=== PATIENT | male | born 1995 | race Two or more races ===

== ENCOUNTER 2017-11-25 15:38 | Emergency (ER) | payer SELFPAY ==
[~2017-11-25] VITALS: Ht 177.8 cm; Wt 68.0 kg
[2017-11-25] MEDS ORDERED: IV NORMAL SALINE 1000ML BAG 1,000 ML IV ONE (16:00)
[2017-11-25] MEDS ORDERED: truvada (16:00)
--- NOTE | 2017-11-25 16:29 | PHYS DOC ---
Past Medical History Past Medical History: No Pertinent History Past Surgical History: Appendectomy, Other Additional Past Surgical Histo: rhinoplasty Alcohol Use: Occasionally Drug Use: None Adult General Chief Complaint Chief Complaint: ANXIETY/PANIC ATTACK HPI HPI 22-year-old male presents to ER via EMS with anxiety and hyperventilation. Patient is scheduled to be at 7 PM tonight and while in preparation for tonight's events had increased anxiety and began hyperventilating. Patient did take Valium 5 mg by mouth prior to EMS.. Review of Systems Review of Systems Constitutional: Denies fever or chills [] Eyes: Denies change in visual acuity, redness, or eye pain [] HENT: Denies nasal congestion or sore throat [] Respiratory: Denies cough or shortness of breath [] Cardiovascular: No additional information not addressed in HPI [] GI: Denies abdominal pain, nausea, vomiting, bloody stools or diarrhea [] : Denies dysuria or hematuria [] Musculoskeletal: Denies back pain or joint pain [] Integument: Denies rash or skin lesions [] Neurologic: Denies headache, focal weakness or sensory changes [] Endocrine: Denies polyuria or polydipsia [] All other systems were reviewed and found to be within normal limits, except as documented in this note. Current Medications Current Medications Current Medications Medications (Trade) Dose Ordered Sig/Андрей Start Time Stop Time Status Last Admin Dose Admin Lorazepam (Ativan) 1 mg 1X ONCE 11/25/17 17:15 11/25/17 17:16 DC Sodium Chloride 1,000 ml @ 1,000 mls/hr 1X ONCE 11/25/17 16:00 11/25/17 16:59 DC 11/25/17 16:07 1,000 MLS/HR Allergies Allergies Allergies Coded Allergies Type Severity Reaction Last Updated Verified Penicillins Allergy Unknown 11/25/17 Yes junie Allergy Unknown 11/25/17 Yes Physical Exam Physical Exam Constitutional: Well developed, well nourished, no acute distress, non-toxic appearance. [] HENT: Normocephalic, atraumatic, bilateral external ears normal, oropharynx moist, no oral exudates, nose normal. [] Eyes: PERRLA, EOMI, conjunctiva normal, no discharge. [] Neck: Normal range of motion, no tenderness, supple, no stridor. [] Cardiovascular:Heart rate regular rhythm, no murmur [] Lungs & Thorax: Bilateral breath sounds clear to auscultation [] Abdomen: Bowel sounds normal, soft, no tenderness, no masses, no pulsatile masses. [] Skin: Warm, dry, no erythema, no rash. [] Back: No tenderness, no CVA tenderness. [] Extremities: No tenderness, no cyanosis, no clubbing, ROM intact, no edema. [] Neurologic: Alert and oriented X 3, normal motor function, normal sensory function, no focal deficits noted. [] Psychologic: Affect normal, judgement normal, mood normal. [] Current Patient Data Vital Signs Vital Signs Date Time Temp Pulse Resp B/P (MAP) Pulse Ox O2 Delivery O2 Flow Rate FiO2 11/25/17 15:53 97.8 124 36 132/87 (102) 100 97.8 EKG EKG [] Radiology/Procedures Radiology/Procedures [] Course & Med Decision Making Course & Med Decision Making 1626: Reevaluation patient had slightly improved symptoms following 0.5 IV Ativan. Patient remains on nonrebreather mask at 6 L low-flow. While reevaluating patient did have increased anxiety so additional 1 mg IV Ativan was administered. Following redirection of breathing technique. He was able to slow his respirations and had improved symptoms. 172: Pt has had much improved sxs since arriving following flds/IV ativan. He reports he is feeling much better and feels comfortable with home discharge. Patient's fiance is at bedside and has been supportive while in the ER. Patient reports feeling the past few days have had increased stress as he was preparing for his wedding today. Patient reports he has had anxiety in the past but never had a panic attack like today's. Denies any depression or suicidal ideations. Discussed pt's case with Dr. Tompkins along with plan of care- will provide pt with Rx for Ativan 1mg tabs #10 with education on medication. Robert Disclaimer Robert Disclaimer This electronic medical record was generated, in whole or in part, using a voice recognition dictation system. Departure Departure Impression: Primary Impression: Anxiety Disposition: 01 HOME, SELF-CARE Condition: STABLE Referrals: DERRELL DOMÍNGUEZ MD (PCP) Follow-up with your primary doctor to further discuss anxiety and further prescriptions for anxiety medications Patient Instructions: Anxiety and Panic Attacks Scripts Lorazepam (ATIVAN) 1 Mg Tablet 1 MG PO DAILY, #10 TAB 0 Refills no drinking alcohol or driving while on this medication Prov: HANK JAMES APRN 11/25/17 HANK JAMES APRN Nov 25, 2017 16:29
[2017-11-25 17:26] VITALS: BP 138/71
[2017-11-25] MEDS ORDERED: LORA-434 PO (17:35)
[2017-11-25] MEDS ORDERED: ONDANSETRON ODT 4 MG TAB.RAPDIS. ONE (17:48)
[2017-11-25] MEDS ORDERED: ONDANSETRON ODT 4 MG TAB.RAPDIS. PO ONE (18:00)
== END 2017-11-25 17:55 | disposition home or self-care (01) ==
LOC: ER 15:38
DX: F41.9 Anxiety disorder, unspecified (principal); Z90.89 Acquired absence of other organs; Z88.0 Allergy status to penicillin; Z91.018 Allergy to other foods
CPT/HCPCS: 96374; 96376; 99284; J2060; J7030; Q0162; 96361

== ENCOUNTER → 2018-01-28 | Outpatient (CLI) | payer OTHER ==
[~2018-01-28] MED LIST: LORA-434 PO; truvada
[2018-01-28 16:00] LABS: BASO # 0.1 x10^3/uL (0.0-0.2); BASO % 1 % (0-3); EOS # 0.4 x10^3/uL (0.0-0.7); EOS % 3 % (0-3); HEMATOCRIT 47.5 % (39.0-53.0); HEMOGLOBIN 16.4 g/dL (13.0-17.5); LYMPH # 2.7 x10^3/uL (1.0-4.8); LYMPH % 26 % (24-48); MEAN CORPUSCULAR HEMOGLOBIN 32 pg (25-35); MEAN CORPUSCULAR HGB CONC 35 g/dL (31-37); MEAN CORPUSCULAR VOLUME 93 fL (79-100); MONO # 0.9 x10^3/uL (0.0-1.1); MONO % 9 % (0-9); NEUT # 6.5 x10^3uL (1.8-7.7); NEUT % 61 % (31-73); PLATELET COUNT 358 x10^3/uL (140-400); RED BLOOD COUNT 5.13 x10^6/uL (4.30-5.70); RED CELL DISTRIBUTION WIDTH 13.5 % (11.5-14.5); WHITE BLOOD COUNT 10.6 x10^3/uL (4.0-11.0)
[2018-01-28 16:29] LABS: ALBUMIN 4.4 g/dL (3.4-5.0); ALBUMIN/GLOBULIN RATIO 1.1 (1.0-1.7); CALCIUM 9.7 mg/dL (8.5-10.1); CREATININE 0.9 mg/dL (0.7-1.3); GFR 106.5; TOTAL BILIRUBIN 0.3 mg/dL (0.2-1.0); TOTAL PROTEIN 8.5 g/dL (6.4-8.2)
[2018-01-28 16:30] LABS: POTASSIUM 3.4 mmol/L (3.5-5.1)
== END | disposition home or self-care (01) ==
LOC: LAB 15:39
PROVIDERS: ATTEND Family Medicine
DX: Z20.6 Contact with and (suspected) exposure to human immunodeficiency virus [HIV] (principal)
CPT/HCPCS: 36415; 80053; 85025; 86592; 86705; 86709; 86803; 87340; 87491; 87536; 87591

== ENCOUNTER → 2018-06-02 | Outpatient (CLI) | payer OTHER ==
[2018-06-02 16:51] LABS: BASO # 0.1 x10^3/uL (0.0-0.2); BASO % 1 % (0-3); EOS # 0.2 x10^3/uL (0.0-0.7); EOS % 2 % (0-3); HEMATOCRIT 44.4 % (39.0-53.0); HEMOGLOBIN 14.9 g/dL (13.0-17.5); LYMPH # 2.6 x10^3/uL (1.0-4.8); LYMPH % 30 % (24-48); MEAN CORPUSCULAR HEMOGLOBIN 31 pg (25-35); MEAN CORPUSCULAR HGB CONC 34 g/dL (31-37); MEAN CORPUSCULAR VOLUME 93 fL (79-100); MONO # 0.7 x10^3/uL (0.0-1.1); MONO % 8 % (0-9); NEUT # 5.2 x10^3uL (1.8-7.7); NEUT % 60 % (31-73); PLATELET COUNT 397 x10^3/uL (140-400); RED BLOOD COUNT 4.77 x10^6/uL (4.30-5.70); RED CELL DISTRIBUTION WIDTH 13.2 % (11.5-14.5); WHITE BLOOD COUNT 8.7 x10^3/uL (4.0-11.0)
[2018-06-02 17:14] LABS: ALBUMIN 4.3 g/dL (3.4-5.0); CALCIUM 9.4 mg/dL (8.5-10.1); CREATININE 0.9 mg/dL (0.7-1.3); GFR 106.5; POTASSIUM 4.2 mmol/L (3.5-5.1); TOTAL BILIRUBIN 0.3 mg/dL (0.2-1.0); TOTAL PROTEIN 8.6 g/dL (6.4-8.2)
== END | disposition home or self-care (01) ==
LOC: LAB 16:23
PROVIDERS: ATTEND Family Medicine
DX: Z20.2 Contact with and (suspected) exposure to infections with a predominantly sexual mode of transmission (principal); Z20.6 Contact with and (suspected) exposure to human immunodeficiency virus [HIV]
CPT/HCPCS: 36415; 80053; 85025; 86592; 86703; 86705; 86709; 86803; 87340; 87491; 87591

== ENCOUNTER 2018-08-12 11:20 | Emergency (ER) | payer OTHER ==
[~2018-08-12] VITALS: Ht 167.6 cm; Wt 78.0 kg
[2018-08-12] MEDS ORDERED: LORazepam 1 MG TABLET ONE (11:49)
[2018-08-12] MEDS ORDERED: LORazepam 1 MG TABLET PO ONE (12:00)
--- NOTE | 2018-08-12 12:48 | PHYS DOC ---
Past Medical History Past Medical History: No Pertinent History Additional Past Medical Histor: On Truvada for prophylaxis, but the patient is not HIV positive Past Surgical History: Appendectomy, Other Additional Past Surgical Histo: rhinoplasty Alcohol Use: Occasionally Drug Use: None Adult General Chief Complaint Chief Complaint: SYNCOPE HPI HPI Patient is a 23-year-old male who presents to the emergency department, along with his . He states he has been having palpitations on and off over the past several weeks and in fact had a Holter monitor placed recently. He states that this morning he began hyperventilating, feeling anxious and panicking, developed cramping in his legs, and apparently passed out. He has had a history of anxiety in the past and states his symptoms seemed like his normal panic attack so he has not had frequent passing out episodes until recently. He denies any pain at this time, except in his legs bilaterally. The patient was hyper ventilating upon initial presentation to the emergency department, but his symptoms significantly improved after being given Ativan. He denies any chest pain or palpitations at this time. He denies any numbness or focal weakness. There are no alleviating or exacerbating factors to his symptoms. He started on Paxil about 2 months ago, but is not currently on any other anxiety medication. He does not have any mental health providers currently. Review of Systems Review of Systems Constitutional: Denies fever or chills [] Eyes: Denies change in visual acuity, redness, or eye pain [] HENT: Denies nasal congestion or sore throat [] Respiratory: Denies cough or shortness of breath [] Cardiovascular: No additional information not addressed in HPI [] GI: Denies abdominal pain, nausea, vomiting, bloody stools or diarrhea [] : Denies dysuria or hematuria [] Musculoskeletal: Denies back pain or joint pain. Reports cramping in legs [] Integument: Denies rash or skin lesions [] Neurologic: Denies headache, focal weakness or sensory changes [] Endocrine: Denies polyuria or polydipsia [] All other systems were reviewed and found to be within normal limits, except as documented in this note. Current Medications Current Medications Current Medications Medications (Trade) Dose Ordered Sig/Андрей Start Time Stop Time Status Last Admin Dose Admin Lorazepam (Ativan) 1 mg 1X ONCE 08/12/18 12:00 08/12/18 12:01 DC 08/12/18 11:53 1 MG Potassium Phos/ Sodium Phos (Phos-Nak) 1 pkt 1X ONCE 08/12/18 14:00 08/12/18 14:01 Allergies Allergies Allergies Coded Allergies Type Severity Reaction Last Updated Verified Penicillins Allergy Unknown 11/25/17 Yes junie Allergy Unknown 11/25/17 Yes Physical Exam Physical Exam PHYSICAL EXAM: CONSTITUTIONAL: Well developed, well nourished HEAD: normocephalic, atraumatic EENT: PERRL, EOMI. Conjunctivae normal color, sclerae non-icteric; moist mucous membranes. NECK: Supple, non-tender; no meningismus. LUNGS: Lungs CTA, exhibits mild hyperventilation at this time, Normal air movement. HEART: Regular rate and rhythm, no murmur CHEST: No deformity; non-tender ABDOMEN: The abdomen is soft, and non-tender, no masses or bruits. EXTREM: Normal ROM; no deformity, no calf tenderness. Normal pulses palpable in all extremities. There is no pedal edema. SKIN: No rash; no diaphoresis NEURO: Alert; normal speech and cognition; CN's grossly intact; strength grossly intact without focal deficit. BACK: No CVA TTP. PSYCHIATRIC: The patient has a moderately anxious affect. He does not know exactly what is causing him to be anxious, although he states that being in the hospital hooked up to cardiac care unit nurse is currently causing him anxiety. Current Patient Data Vital Signs Vital Signs Date Time Temp Pulse Resp B/P (MAP) Pulse Ox O2 Delivery O2 Flow Rate FiO2 08/12/18 11:31 97.7 106 24 153/88 (109) 96 Room Air 97.7 Lab Values Laboratory Tests Test 08/12/18 11:30 White Blood Count 13.1 x10^3/uL (4.0-11.0) H Red Blood Count 4.97 x10^6/uL (4.30-5.70) Hemoglobin 15.2 g/dL (13.0-17.5) Hematocrit 46.8 % (39.0-53.0) Mean Corpuscular Volume 94 fL (79-100) Mean Corpuscular Hemoglobin 31 pg (25-35) Mean Corpuscular Hemoglobin Concent 32 g/dL (31-37) Red Cell Distribution Width 13.7 % (11.5-14.5) Platelet Count 410 x10^3/uL (140-400) H Neutrophils (%) (Auto) 65 % (31-73) Lymphocytes (%) (Auto) 25 % (24-48) Monocytes (%) (Auto) 9 % (0-9) Eosinophils (%) (Auto) 1 % (0-3) Basophils (%) (Auto) 0 % (0-3) Neutrophils # (Auto) 8.5 x10^3uL (1.8-7.7) H Lymphocytes # (Auto) 3.2 x10^3/uL (1.0-4.8) Monocytes # (Auto) 1.2 x10^3/uL (0.0-1.1) H Eosinophils # (Auto) 0.2 x10^3/uL (0.0-0.7) Basophils # (Auto) 0.0 x10^3/uL (0.0-0.2) Sodium Level 136 mmol/L (136-145) Potassium Level 3.8 mmol/L (3.5-5.1) Chloride Level 98 mmol/L (98-107) Carbon Dioxide Level 23 mmol/L (21-32) Anion Gap 15 (6-14) H Blood Urea Nitrogen 10 mg/dL (8-26) Creatinine 1.0 mg/dL (0.7-1.3) Estimated GFR (Cockcroft-Gault) 94.3 Glucose Level 108 mg/dL (70-99) H Calcium Level 10.0 mg/dL (8.5-10.1) Phosphorus Level 1.5 mg/dL (2.6-4.7) L Magnesium Level 1.7 mg/dL (1.8-2.4) L Creatine Kinase 176 U/L (39-308) Thyroid Stimulating Hormone (TSH) 0.919 uIU/mL (0.358-3.74) Free Thyroxine 1.10 ng/dL (0.76-1.46) Laboratory Tests 08/12/18 11:30 Laboratory Tests 08/12/18 11:30 EKG EKG Normal sinus rhythm with a normal rate, normal axis, normal intervals, there are no acute ischemic ST/T changes.[] Radiology/Procedures Radiology/Procedures [] Course & Med Decision Making Course & Med Decision Making Pertinent Lab studies reviewed. (See chart for details) []1:45 PM: The patient's condition remained stable and he is feeling much better at this time. He is asymptomatic. I suspect his alleged light abnormalities are related to hyperventilation induced electrolyte chest. He'll be given a phosphorus supplement as a precaution. I discussed importance of obtaining mental health follow-up, and return precautions. Dragon Disclaimer Dragon Disclaimer This electronic medical record was generated, in whole or in part, using a voice recognition dictation system. Departure Departure Impression: Primary Impression: Anxiety Additional Impression: Hyperventilation syndrome Disposition: 01 HOME, SELF-CARE Condition: STABLE Referrals: DERRELL DOMÍNGUEZ MD (PCP) Patient Instructions: Anxiety and Panic Attacks, Hyperventilation Additional Instructions: Follow-up with [facility], . Please call to schedule an appointment. Scripts Lorazepam (ATIVAN) 1 Mg Tablet 1 MG PO DAILY PRN for ANXIETY / AGITATION, #10 TAB Prov: DALILN HERRERA MD 08/12/18 Problem Qualifiers DALLIN HERRERA MD August 12, 2018 12:48
[2018-08-12 12:52] LABS: BASO % 0 % (0-3); EOS # 0.2 x10^3/uL (0.0-0.7); EOS % 1 % (0-3); HEMATOCRIT 46.8 % (39.0-53.0); HEMOGLOBIN 15.2 g/dL (13.0-17.5); LYMPH # 3.2 x10^3/uL (1.0-4.8); LYMPH % 25 % (24-48); MEAN CORPUSCULAR HEMOGLOBIN 31 pg (25-35); MEAN CORPUSCULAR HGB CONC 32 g/dL (31-37); MEAN CORPUSCULAR VOLUME 94 fL (79-100); MONO # 1.2 x10^3/uL (0.0-1.1); MONO % 9 % (0-9); NEUT # 8.5 x10^3uL (1.8-7.7); NEUT % 65 % (31-73); PLATELET COUNT 410 x10^3/uL (140-400); RED BLOOD COUNT 4.97 x10^6/uL (4.30-5.70); RED CELL DISTRIBUTION WIDTH 13.7 % (11.5-14.5); WHITE BLOOD COUNT 13.1 x10^3/uL (4.0-11.0)
[2018-08-12 13:09] LABS: GFR 94.3; POTASSIUM 3.8 mmol/L (3.5-5.1)
[2018-08-12 13:13] LABS: MAGNESIUM 1.7 mg/dL (1.8-2.4); PHOSPHORUS 1.5 mg/dL (2.6-4.7)
[2018-08-12 13:22] LABS: FREE T4 1.1 ng/dL (0.76-1.46); THYROID STIM HORMONE (TSH) 0.919 uIU/mL (0.358-3.74)
[2018-08-12] MEDS ORDERED: LORA-434 PO (13:48)
[2018-08-12 14:00] VITALS: BP 134/73
[2018-08-12] MEDS ORDERED: POTASSIUM & SODIUM PHOSPHATES PACKET. PO ONE (14:00)
--- NOTE | 2018-08-12 15:19 | EKG ---
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
== END 2018-08-12 14:34 | disposition home or self-care (01) ==
LOC: ER 11:20
DX: F45.8 Other somatoform disorders (principal); F41.9 Anxiety disorder, unspecified; R00.2 Palpitations; Z90.89 Acquired absence of other organs; Z88.0 Allergy status to penicillin; Z91.018 Allergy to other foods
CPT/HCPCS: 36415; 80048; 82550; 83735; 84100; 84439; 84443; 85025; 93005; 99285-25

== ENCOUNTER → 2018-08-17 | Outpatient (CLI) | payer OTHER ==
[2018-08-12 14:00] VITALS: BP 134/73
--- NOTE | 2018-08-17 11:36 | CARD ---
MR#: [id number] Date of Study: 08/17/2018 Ordering Physician: UMER ARMANDO, Referring Physician: UMER ARMANDO, Tech: Jerica Hernandez [facility] APPROVED REPORT EXAM: Two-dimensional and M-mode echocardiogram with Doppler and color Doppler. Other Information Quality : AverageHR: 66bpm Rhythm : NSR INDICATION Syncope 2D DIMENSIONS RVDd2.5 (2.9-3.5cm)Left Atrium(2D)3.0 (1.6-4.0cm) IVSd0.8 (0.7-1.1cm)Aortic Root(2D)3.1 (2.0-3.7cm) LVDd5.1 (3.9-5.9cm)LVOT Diameter2.2 (1.8-2.4cm) PWd0.9 (0.7-1.1cm)LVDs3.8 (2.5-4.0cm) FS (%) 25.7 %SV61.6 ml LVEF(%)50.3 (>50%) Aortic Valve AoV Peak Amador.111.1cm/sAoV VTI20.9cm AO Peak GR.4.9mmHgLVOT Peak Amador.83.5cm/s AO Mean GR.3mmHgAVA (VMAX)2.77cm2 RICK (VTI)2.80cm2 Mitral Valve MV E Skpvfuep65.2cm/sMV DECEL QUMU862ve MV A Nzthawwd02.3cm/sE/A Ratio1.4 Pulmonary Valve PV Peak Bbcvodie60.3cm/s LEFT VENTRICLE The left ventricle is normal size. There is normal left ventricular wall thickness. There is mild ayaan bal LV systolic dysfunction with estimated ejection fraction of approximately 45%. The distal half of the left ventricle including the apex is notable for mild hypokinesis. There is apical displacement of the papillary muscles. The left ventricular diastolic function and filling is normal for age. Left ventricle trabeculae are noted. RIGHT VENTRICLE The right ventricle is normal size. There is normal right ventricular wall thickness. The right ventr icular systolic function is normal. ATRIA The left atrium size is normal. The right atrium size is normal. The interatrial septum is intact wit h no evidence for an atrial septal defect or patent foramen ovale as noted on 2-D or Doppler imaging. AORTIC VALVE The aortic valve is normal in structure and function. The aortic valve is trileaflet. Doppler and Col or Flow revealed no significant aortic regurgitation. There is no significant aortic valvular stenosi s. There is no aortic valvular vegetation. MITRAL VALVE The mitral valve is normal in structure and function. There is no evidence of mitral valve prolapse. There is no mitral valve stenosis. Doppler and Color Flow revealed no mitral valve regurgitation note d. TRICUSPID VALVE The tricuspid valve is normal in structure and function. Doppler and Color Flow revealed trace tricus pid regurgitation. There is no tricuspid valve prolapse or vegetation. There is no tricuspid valve st enosis. PULMONIC VALVE The pulmonary valve is normal in structure and function. Doppler and Color Flow revealed trace pulmon ic valvular regurgitation. There is no pulmonic valvular stenosis. GREAT VESSELS The aortic root is normal in size. The ascending aorta is normal in size. The IVC is normal in size a nd collapses >50% with inspiration. PERICARDIAL EFFUSION There is no evidence of significant pericardial effusion. Critical Notification Critical Value: No <Conclusion> The distal half of the left ventricle including the apex is notable for mild hypokinesis. There is ap ical displacement of the papillary muscles. There is mild global LV systolic dysfunction with estimated ejection fraction of approximately 45%. Signed by : Umer Armando, Electronically Approved : 08/17/2018 11:35:59
--- NOTE | 2018-08-20 15:24 | EKG ---
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
== END | disposition home or self-care (01) ==
LOC: ECHO 10:20
PROVIDERS: ATTEND Internal Medicine Cardiovascular Disease
DX: I50.1 Left ventricular failure, unspecified (principal); I51.89 Other ill-defined heart diseases
CPT/HCPCS: 93226; 93306

== ENCOUNTER 2019-01-27 07:31 | Emergency (ER) | payer OTHER ==
[~2019-01-27] VITALS: Ht 170.2 cm; Wt 78.9 kg
[2019-01-27] MEDS ORDERED: IV NORMAL SALINE 1000ML BAG 1,000 ML IV SCH (07:52)
[2019-01-27] MEDS ORDERED: IOHEXOL 300 MG/ML 100ML VIAL. IV ONE (08:00)
[2019-01-27] MEDS ORDERED: CONTRAST GIVEN. MC PRN (08:00)
[2019-01-27 08:13] LABS: BASO # 0.1 x10^3/uL (0.0-0.2); BASO % 1 % (0-3); EOS # 0.4 x10^3/uL (0.0-0.7); EOS % 5 % (0-3); HEMOGLOBIN 15.6 g/dL (13.0-17.5); LYMPH # 2.6 x10^3/uL (1.0-4.8); LYMPH % 36 % (24-48); MEAN CORPUSCULAR HEMOGLOBIN 31 pg (25-35); MEAN CORPUSCULAR HGB CONC 34 g/dL (31-37); MEAN CORPUSCULAR VOLUME 92 fL (79-100); MONO # 0.8 x10^3/uL (0.0-1.1); MONO % 11 % (0-9); NEUT # 3.4 x10^3/uL (1.8-7.7); NEUT % 47 % (31-73); PLATELET COUNT 323 x10^3/uL (140-400); RED BLOOD COUNT 5.02 x10^6/uL (4.30-5.70); RED CELL DISTRIBUTION WIDTH 13.8 % (11.5-14.5); WHITE BLOOD COUNT 7.2 x10^3/uL (4.0-11.0)
[2019-01-27 08:21] LABS: CALCIUM 9.3 mg/dL (8.5-10.1); CREATININE 0.8 mg/dL (0.7-1.3); GFR 120.9; POTASSIUM 4.4 mmol/L (3.5-5.1)
[2019-01-27 08:27] LABS: TOTAL BILIRUBIN 0.6 mg/dL (0.2-1.0)
[2019-01-27] MEDS ORDERED: ONDANSETRON PF 4 MG/2 ML VIAL. IV ONE (08:30)
--- NOTE | 2019-01-27 08:41 | PHYS DOC ---
Past Medical History Past Medical History: No Pertinent History Additional Past Medical Histor: On Truvada for prophylaxis, but the patient is not HIV positive Past Surgical History: Appendectomy, Other Additional Past Surgical Histo: rhinoplasty Alcohol Use: Occasionally Drug Use: None Adult General Chief Complaint Chief Complaint: ABDOMINAL PAIN HPI HPI Patient is a 24 year old male who presents with complaining of abdominal pain. Patient complaining of intermittent episodes of suprapubic pressure pain for the last 1 week that usually happen for several times a day and lasts for a few seconds with radiation to his back and rated his pain 4/10. Patient complaining of fever up to 102.4 for the last 3 days associated with 5 episodes of nonbloody vomiting and 2 episodes of diarrhea per day. Patient denies sick contact, urinary symptom, cough and congestion and sore throat, chest pain and shortness of breath. Patient had history of appendectomy. Patient currently taking Truvada for prevention of HIV because of homosexual activity with HIV positive partner. Review of Systems Review of Systems Constitutional: Reports fever Eyes: Denies change in visual acuity, redness, or eye pain [] HENT: Denies nasal congestion or sore throat [] Respiratory: Denies cough or shortness of breath [] Cardiovascular: No additional information not addressed in HPI [] GI: Reports abdominal pain, nausea, vomiting, diarrhea [] : Denies dysuria or hematuria [] Musculoskeletal: Denies back pain or joint pain [] Integument: Denies rash or skin lesions [] Neurologic: Denies headache, focal weakness or sensory changes [] Endocrine: Denies polyuria or polydipsia [] All other systems were reviewed and found to be within normal limits, except as documented in this note. Current Medications Current Medications Current Medications Medications (Trade) Dose Ordered Sig/Андрей Start Time Stop Time Status Last Admin Dose Admin Info (CONTRAST GIVEN -- Rx MONITORING) 1 each PRN DAILY PRN 01/27/19 08:00 01/29/19 07:59 Iohexol (Omnipaque 300 Mg/ml) 75 ml 1X ONCE 01/27/19 08:00 01/27/19 08:01 DC 01/27/19 08:30 75 ML Ondansetron HCl (Zofran) 4 mg 1X ONCE 01/27/19 08:30 01/27/19 08:34 DC 01/27/19 08:46 4 MG Sodium Chloride 1,000 ml @ 1,000 mls/hr Q1H 01/27/19 07:52 01/27/19 08:51 DC 01/27/19 08:48 1,000 MLS/HR Allergies Allergies Allergies Coded Allergies Type Severity Reaction Last Updated Verified Penicillins Allergy Unknown 11/25/17 Yes junie Allergy Unknown 11/25/17 Yes Physical Exam Physical Exam Constitutional: Well developed, well nourished, mild distress, non-toxic jairo earance afebrile. [] HENT: Normocephalic, atraumatic. Eyes: PERRLA, EOMI, conjunctiva normal, no discharge. [] Neck: Normal range of motion, no tenderness, supple, no stridor. [] Cardiovascular:Heart rate regular rhythm, no murmur [] Lungs & Thorax: Bilateral breath sounds clear to auscultation [] Abdomen: Bowel sounds normal, soft, no tenderness, no masses, no pulsatile masses. [] Skin: Warm, dry, no erythema, no rash. [] Back: No tenderness, no CVA tenderness. [] Extremities: No tenderness, no cyanosis, no clubbing, ROM intact, no edema. [] Neurologic: Alert and oriented X 3, no focal deficits noted. [] Psychologic: Affect normal, judgement normal, mood normal. [] Current Patient Data Vital Signs Vital Signs Date Time Temp Pulse Resp B/P (MAP) Pulse Ox O2 Delivery O2 Flow Rate FiO2 01/27/19 09:40 65 121/75 (90) 94 Room Air 01/27/19 07:37 98.2 16 98.2 Lab Values Laboratory Tests Test 01/27/19 08:00 01/27/19 09:30 White Blood Count 7.2 x10^3/uL (4.0-11.0) Red Blood Count 5.02 x10^6/uL (4.30-5.70) Hemoglobin 15.6 g/dL (13.0-17.5) Hematocrit 46.0 % (39.0-53.0) Mean Corpuscular Volume 92 fL (79-100) Mean Corpuscular Hemoglobin 31 pg (25-35) Mean Corpuscular Hemoglobin Concent 34 g/dL (31-37) Red Cell Distribution Width 13.8 % (11.5-14.5) Platelet Count 323 x10^3/uL (140-400) Neutrophils (%) (Auto) 47 % (31-73) Lymphocytes (%) (Auto) 36 % (24-48) Monocytes (%) (Auto) 11 % (0-9) H Eosinophils (%) (Auto) 5 % (0-3) H Basophils (%) (Auto) 1 % (0-3) Neutrophils # (Auto) 3.4 x10^3/uL (1.8-7.7) Lymphocytes # (Auto) 2.6 x10^3/uL (1.0-4.8) Monocytes # (Auto) 0.8 x10^3/uL (0.0-1.1) Eosinophils # (Auto) 0.4 x10^3/uL (0.0-0.7) Basophils # (Auto) 0.1 x10^3/uL (0.0-0.2) Sodium Level 140 mmol/L (136-145) Potassium Level 4.4 mmol/L (3.5-5.1) Chloride Level 103 mmol/L (98-107) Carbon Dioxide Level 28 mmol/L (21-32) Anion Gap 9 (6-14) Blood Urea Nitrogen 13 mg/dL (8-26) Creatinine 0.8 mg/dL (0.7-1.3) Estimated GFR (Cockcroft-Gault) 120.9 BUN/Creatinine Ratio 16 (6-20) Glucose Level 98 mg/dL (70-99) Calcium Level 9.3 mg/dL (8.5-10.1) Total Bilirubin 0.6 mg/dL (0.2-1.0) Aspartate Amino Transferase (AST) 32 U/L (15-37) Alanine Aminotransferase (ALT) 71 U/L (16-63) H Alkaline Phosphatase 122 U/L (46-116) H Total Protein 8.0 g/dL (6.4-8.2) Albumin 4.0 g/dL (3.4-5.0) Albumin/Globulin Ratio 1.0 (1.0-1.7) Lipase 204 U/L (73-393) Urine Collection Type Unknown Urine Color Yellow Urine Clarity Clear Urine pH 7.0 Urine Specific [place] >=1.030 Urine Protein Negative mg/dL (NEG-TRACE) Urine Glucose (UA) Negative mg/dL (NEG) Urine Ketones (Stick) Negative mg/dL (NEG) Urine Blood Negative (NEG) Urine Nitrite Negative (NEG) Urine Bilirubin Negative (NEG) Urine Urobilinogen Dipstick 0.2 mg/dL (0.2 mg/dL) Urine Leukocyte Esterase Negative (NEG) Urine RBC 0 /HPF (0-2) Urine WBC 0 /HPF (0-4) Urine Squamous Epithelial Cells Few /LPF Urine Bacteria 0 /HPF (0-FEW) Laboratory Tests 01/27/19 08:00 Laboratory Tests 01/27/19 08:00 EKG EKG [] Radiology/Procedures Radiology/Procedures [][facility] [address] [place], [place] [id number] IMAGING REPORT Signed PATIENT: PATRICK GRIFFIN ACCOUNT: [id number] : 1995 LOCATION: ER AGE: 24 SEX: M EXAM STATUS: REG ER ORD. PHYSICIAN: LOREN MOSS MD REASON: fever, abdominal pain, nausea and vomiting and diarrhea, history of appende PROCEDURE: CT ABD PELV W/ IV CONTRST ONLY Examination: CT ABD PELV W/ IV CONTRST ONLY History: Fever, abdominal pain, nausea, vomiting, diarrhea Comparison/Correlation: None Findings: Axial images of the abdomen and pelvis were obtained following IV contrast. Sagittal and coronal reformatted images were provided. Visualized lung bases are clear. Liver, spleen, pancreas, adrenal glands, and kidneys are normal. Retroaortic left renal vein is present. No extraluminal gas. No bowel obstruction. Circumferential wall thickening of multiple left upper quadrant jejunal loops of bowel is noted without surrounding inflammation. This may represent contraction or spasm. The gallbladder fossa is unremarkable. Suture material about the cecum compatible with reported history of appendectomy noted. No inflammatory findings identified to involve bowel. The urinary bladder is unremarkable. Ascites or pelvic free fluid. No acute bony process. Impression: No acute inflammatory process, mass, or obstruction. PQRS Compliance Statement: One or more of the following individualized dose reduction techniques were utilized for this examination: 1. Automated exposure control 2. Adjustment of the mA and/or kV according to patient size 3. Use of iterative reconstruction technique Electronically signed by: Andrade Swenson MD (01/27/2019 9:05 AM) [facility] DICTATED and SIGNED BY: ANDRADE SWENSON MD DATE: 01/27/19904 Course & Med Decision Making Course & Med Decision Making Pertinent Labs and Imaging studies reviewed. (See chart for details) Evaluation of patient in ER showed 24-year-old male patient with complaining of episode of abdominal pain and nausea and vomiting diarrhea and fever. Patient had unremarkable physical exam without fever in ER. Labs and CT of abdomen and pelvis was unremarkable. Patient felt better with IV fluid and Zofran and tolerated oral intake. Plan to discharge patient home with diagnose of viral gastroenteritis. Patient was advised to take liquid diet for the next 24 hours. Dragon Disclaimer Dragon Disclaimer This electronic medical record was generated, in whole or in part, using a voice recognition dictation system. Departure Departure Impression: Primary Impression: Acute gastroenteritis Disposition: HOME, SELF-CARE (at 0 [phone]) Condition: IMPROVED Referrals: DERRELL DOMÍNGUEZ MD (PCP) Patient Instructions: Viral Gastroenteritis Additional Instructions: Drink plenty of liquids Follow-up with your primary care physician in 3-5 days Return to ER if not getting better Do not eat solid food for the next 24 hours Scripts Ondansetron Hcl (ZOFRAN) 4 Mg Tablet 1 TAB PO PRN Q6-8HRS for nausea, #12 TAB Prov: LOREN MOSS MD 01/27/19 Naproxen (NAPROSYN) 500 Mg Tablet 1 TAB PO BID for pain, #20 TAB Prov: LOREN MOSS MD 01/27/19 LOREN MOSS MD Jan 27, 2019 08:41
--- NOTE | 2019-01-27 09:08 | RAD ---
Examination: CT ABD PELV W/ IV CONTRST ONLY History: Fever, abdominal pain, nausea, vomiting, diarrhea Comparison/Correlation: None Findings: Axial images of the abdomen and pelvis were obtained following IV contrast. Sagittal and coronal reformatted images were provided. Visualized lung bases are clear. Liver, spleen, pancreas, adrenal glands, and kidneys are normal. Retroaortic left renal vein is present. No extraluminal gas. No bowel obstruction. Circumferential wall thickening of multiple left upper quadrant jejunal loops of bowel is noted without surrounding inflammation. This may represent contraction or spasm. The gallbladder fossa is unremarkable. Suture material about the cecum compatible with reported history of appendectomy noted. No inflammatory findings identified to involve bowel. The urinary bladder is unremarkable. Ascites or pelvic free fluid. No acute bony process. Impression: No acute inflammatory process, mass, or obstruction. PQRS Compliance Statement: One or more of the following individualized dose reduction techniques were utilized for this examination: 1. Automated exposure control 2. Adjustment of the mA and/or kV according to patient size 3. Use of iterative reconstruction technique Electronically signed by: Andrade Bhagat MD (01/27/2019 9:05 AM) [facility]
[2019-01-27 09:40] VITALS: BP 121/75
[2019-01-27 09:40] LABS: BILIRUBIN,URINE NEGATIVE (NEG); CLARITY,URINE CLEAR; COLOR,URINE YELLOW; NITRITE,URINE NEGATIVE (NEG); PROTEIN,URINE NEGATIVE (NEG-TRACE); UROBILINOGEN,URINE 0.2 mg/dL (0.2 mg/dL)
[2019-01-27 09:49] LABS: BACTERIA,URINE 0 /HPF (0-FEW); RBC,URINE 0 /HPF (0-2); SQUAMOUS EPITHELIAL CELL,UR FEW /LPF; WBC,URINE 0 /HPF (0-4)
[2019-01-27] MEDS ORDERED: NAPR-683 PO (10:01)
[2019-01-27] MEDS ORDERED: ONDA4TAB7 PO (10:01)
== END 2019-01-27 10:06 | disposition home or self-care (01) ==
LOC: ER 07:31
DX: K52.9 Noninfective gastroenteritis and colitis, unspecified (principal); Z90.89 Acquired absence of other organs; Z88.0 Allergy status to penicillin; Z91.018 Allergy to other foods
CPT/HCPCS: 36415; 74177; 80053; 81001; 83690; 85025; 96361; 96374; 99285; J2405; J7030; Q9967

== ENCOUNTER 2019-02-22 09:46 | Emergency (ER) | payer OTHER ==
[~2019-02-22] VITALS: Ht 170.2 cm; Wt 72.6 kg
[2019-02-22 09:46] VITALS: BP 188/89
[~2019-02-22 09:46] MED LIST changes: +NAPR-683 PO; +ONDA4TAB7 PO
[2019-02-22] MEDS ORDERED: IV RINGERS,LACTATED 1000ML 1,000 ML IV ONE (10:00)
--- NOTE | 2019-02-22 10:04 | PHYS DOC ---
Past Medical History Past Medical History: No Pertinent History Additional Past Medical Histor: On Truvada for prophylaxis, but the patient is not HIV positive Past Surgical History: Appendectomy, Other Additional Past Surgical Histo: rhinoplasty Alcohol Use: Occasionally Drug Use: None Adult General Chief Complaint Chief Complaint: ANXIETY/PANIC ATTACK HPI HPI Patient is a 24-year-old male who presents to the emergency department for evaluation, along with his . He had gone to the lab for routine blood testing, which she gets about every 3 months for HIV surveillance, although the patient is not HIV positive, according to his . At some point after ge tting his lab drawn, he began experiencing a panic attack, severe hyperventilation, Muscle spasms and some shaking activity. He is able to answer some basic questions. His states that he has a history of severe anxiety in the past, and takes Zoloft, and lorazepam as needed which she uses on average about once a week. Patient denies any other pain at this time. The patient is familiar to me from a prior ER visit for a similar presentation. The patient's states that his current behavior is consistent with his prior panic attack activity. Review of Systems Review of Systems Constitutional: Denies fever or chills [] Eyes: Denies change in visual acuity, redness, or eye pain [] HENT: Denies nasal congestion or sore throat [] Respiratory: Denies cough or shortness of breath, but the patient is hyperventilating. [] Cardiovascular: The patient denies any shortness of breath, chest pain, palpitations, or orthopnea [] GI: Denies abdominal pain, nausea, vomiting, bloody stools or diarrhea [] : Denies dysuria or hematuria [] Musculoskeletal: Denies back pain or joint pain [] Integument: Denies rash or skin lesions [] Neurologic: Generalized muscle weakness and spasm, during panic attack.[] Endocrine: Denies polyuria or polydipsia [] All other systems were reviewed and found to be within normal limits, except as documented in this note. Current Medications Current Medications Current Medications Medications (Trade) Dose Ordered Sig/Андрей Start Time Stop Time Status Last Admin Dose Admin Lorazepam (Ativan Inj) 2 mg STK-MED ONCE 02/22/19 09:51 02/22/19 09:51 DC Ondansetron HCl (Zofran) 4 mg 1X ONCE 02/22/19 10:15 02/22/19 10:17 DC 02/22/19 10:14 4 MG Ringer's Solution 1,000 ml @ 999 mls/hr 1X ONCE 02/22/19 10:00 02/22/19 11:00 02/22/19 09:56 999 MLS/HR Allergies Allergies Allergies Coded Allergies Type Severity Reaction Last Updated Verified Penicillins Allergy Unknown 11/25/17 Yes junie Allergy Unknown 11/25/17 Yes Physical Exam Physical Exam PHYSICAL EXAM: CONSTITUTIONAL: Well developed, well nourished HEAD: normocephalic, atraumatic EENT: PERRL, EOMI. Conjunctivae normal color, sclerae non-icteric; moist mucous membranes. NECK: Supple, non-tender; no meningismus. LUNGS: Lungs CTA, the patient is hyperventilating. Normal air movement. HEART: Regular rate and rhythm, no murmur CHEST: No deformity; non-tender ABDOMEN: The abdomen is soft, and non-tender, no masses or bruits. EXTREM: Normal ROM; no deformity, no calf tenderness. Normal pulses palpable in all extremities. There is no pedal edema. There is muscle spasm in all 4 extremities, some intermittent jerking activity. SKIN: No rash; no diaphoresis NEURO: Alert; normal speech and cognition; CN's grossly intact; strength grossly intact without focal deficit. BACK: No CVA TTP. PSYCHIATRIC: The patient appears extremely anxious. Current Patient Data Vital Signs Vital Signs Date Time Temp Pulse Resp B/P (MAP) Pulse Ox O2 Delivery O2 Flow Rate FiO2 02/22/19 09:46 98.9 118 36 188/89 (122) 100 Room Air 98.9 EKG EKG [] Radiology/Procedures Radiology/Procedures [] Course & Med Decision Making Course & Med Decision Making 10:55 AM: The patient's condition remains stable, he is feeling much better. I counseled the patient on importance of close outpatient follow-up and return precautions in detail. He was instructed not to operate a motor vehicle due to the sedating effects of the Ativan he received, at least for the next 6 hours. Dragon Disclaimer Dragon Disclaimer This electronic medical record was generated, in whole or in part, using a voice recognition dictation system. Departure Departure Impression: Primary Impression: Panic attack Disposition: 01 HOME, SELF-CARE Condition: IMPROVED Referrals: DERRELL DOMÍNGUEZ MD (PCP) Patient Instructions: Anxiety and Panic Attacks DALLIN HERRERA MD Feb 22, 2019 10:04
[2019-02-22] MEDS ORDERED: ONDANSETRON PF 4 MG/2 ML VIAL. ONE (10:12)
[2019-02-22] MEDS ORDERED: ONDANSETRON PF 4 MG/2 ML VIAL. IV ONE (10:15)
== END 2019-02-22 11:25 | disposition home or self-care (01) ==
LOC: ER 09:46
DX: F41.0 Panic disorder [episodic paroxysmal anxiety] (principal); R53.1 Weakness; R06.4 Hyperventilation; Z88.0 Allergy status to penicillin; Z91.018 Allergy to other foods
CPT/HCPCS: 96374; 96375; 99284; J2060; J2405; J7120

== ENCOUNTER 2019-10-17 02:26 | Inpatient (IN) | payer OTHER ==
[~2019-10-17] VITALS: Ht 175.3 cm; Wt 84.5 kg
[2019-10-17 02:54] LABS: BASO # 0.1 x10^3/uL (0.0-0.2); BASO % 1 % (0-3); EOS # 0.2 x10^3/uL (0.0-0.7); EOS % 2 % (0-3); HEMATOCRIT 51.7 % (39.0-53.0); HEMOGLOBIN 17.1 g/dL (13.0-17.5); LYMPH # 2.9 x10^3/uL (1.0-4.8); LYMPH % 24 % (24-48); MEAN CORPUSCULAR HEMOGLOBIN 31 pg (25-35); MEAN CORPUSCULAR HGB CONC 33 g/dL (31-37); MEAN CORPUSCULAR VOLUME 95 fL (79-100); MONO # 0.6 x10^3/uL (0.0-1.1); MONO % 5 % (0-9); NEUT # 8.4 x10^3/uL (1.8-7.7); NEUT % 69 % (31-73); PLATELET COUNT 421 x10^3/uL (140-400); RED BLOOD COUNT 5.47 x10^6/uL (4.30-5.70); RED CELL DISTRIBUTION WIDTH 15.2 % (11.5-14.5); WHITE BLOOD COUNT 12.2 x10^3/uL (4.0-11.0)
[2019-10-17] MEDS ORDERED: IV NORMAL SALINE 1000ML BAG 1,000 ML IV ONE ×2 (03:00→04:00)
[2019-10-17 03:02] LABS: CALCIUM 8.8 mg/dL (8.5-10.1); CREATININE 1.2 mg/dL (0.7-1.3); GFR 75.7; POTASSIUM 4.4 mmol/L (3.5-5.1)
[2019-10-17 03:17] LABS: ALBUMIN 4.5 g/dL (3.4-5.0); ALBUMIN/GLOBULIN RATIO 1.1 (1.0-1.7); TOTAL BILIRUBIN 0.3 mg/dL (0.2-1.0); TOTAL PROTEIN 8.7 g/dL (6.4-8.2)
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
--- NOTE | 2019-10-17 04:33 | RAD ---
HAND BILAT 3V DATE: 10/17/2019 3:56 AM INDICATION: Reason: injury / Spl. Instructions: / History: COMPARISON: None. FINDINGS: Bones: There is no evidence of acute fracture or dislocation. Joints: The joint spaces are normal. Miscellaneous: None. IMPRESSION: No evidence of acute fracture. Electronically signed by: Tacho Cherry MD (10/17/2019 4:30 AM) [facility]
[2019-10-17 05:08] LABS: BILIRUBIN,URINE NEGATIVE (NEG); CLARITY,URINE CLEAR; COLOR,URINE YELLOW; NITRITE,URINE NEGATIVE (NEG); PH,URINE 5.5 (<5.0-8.0); PROTEIN,URINE NEGATIVE (NEG-TRACE); UROBILINOGEN,URINE 0.2 mg/dL (0.2 mg/dL)
[2019-10-17 05:13] LABS: AMPHETAMINE/METHAMPHETAMINE NEG (NEG); BARBITURATES NEG (NEG); BENZODIAZEPINES NEG (NEG); CANNABINOIDS POS (NEG); COCAINE NEG (NEG); METHADONE NEG (NEG); OPIATES NEG (NEG); PHENCYCLIDINE NEG (NEG)
[2019-10-17 05:15] LABS: BACTERIA,URINE 0 /HPF (0-FEW); HYALINE CASTS, URINE FEW /HPF; RBC,URINE 0 /HPF (0-2); SQUAMOUS EPITHELIAL CELL,UR FEW /LPF; WBC,URINE OCC /HPF (0-4)
[2019-10-17 05:58] VITALS: BP 127/64
[2019-10-17 07:32] VITALS: BP 121/68
[2019-10-17] MEDS ORDERED: diphenhydrAMINE 50 MG/ML VIAL IVP PRN (08:00)
[2019-10-17] MEDS ORDERED: LORazepam 0.5 MG TABLET PO PRN (08:00)
[2019-10-17] MEDS ORDERED: cloNIDine HCL 0.1 MG TABLET PO PRN (08:00)
[2019-10-17] MEDS ORDERED: HALOPERIDOL LACTATE 5 MG/ML VIAL. IVP PRN (08:00)
[2019-10-17] MEDS: MULTIVIT INFUSN,ADULT 4,VIT K 10 ML, THIAMINE INJ 100 MG, FOLIC ACID INJ 1 MG in IV NOR... IV SCH (09:17)
[2019-10-17] MEDS: EMTRICITAB/TENOFOVIR 200/300MG TABLET. PO SCH (09:17)
[2019-10-17] MEDS: VENLAFAXINE 75 MG TABLET. PO SCH (11:00)
[2019-10-17 11:12] VITALS: BP 120/67
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
[2019-10-17 15:21] VITALS: BP 121/69
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
[2019-10-17 15:35] LABS: ALBUMIN 3.3 g/dL (3.4-5.0); ALBUMIN/GLOBULIN RATIO 1.1 (1.0-1.7); CALCIUM 7.7 mg/dL (8.5-10.1); CREATININE 0.7 mg/dL (0.7-1.3); TOTAL BILIRUBIN 0.4 mg/dL (0.2-1.0); TOTAL PROTEIN 6.4 g/dL (6.4-8.2)
[2019-10-17 15:39] LABS: POTASSIUM 3.6 mmol/L (3.5-5.1)
[2019-10-17 19:49] VITALS: BP 121/75
--- NOTE | 2019-10-17 20:53 | RAD ---
COMPLETE ABDOMINAL ULTRASOUND Clinical History: Reason: elevated LFTs / Comparison: CT abdomen and pelvis with contrast 2018. Technique: Sonographic examination of the abdomen was performed and multiple grayscale and color Doppler static images were obtained. Findings: The liver is increased in echogenicity. There is decreased through-transmission. The liver measures 16.8 cm. Ultrasound is not sensitive for detecting solid liver lesions. Portal flow is hepatopetal. The common bile duct is normal in caliber, measuring 4 mm in diameter. The gallbladder wall is normal. Per report, sonographic Alvarado sign is negative. There is no cholelithiasis or pericholecystic fluid. The pancreas is obscured due to overlying bowel gas. The right kidney is normal in echotexture and measures 11 cm. The left kidney is normal in echotexture and measures 9.9 cm. Corticomedullary differentiation is preserved. There is no hydronephrosis. The spleen is not enlarged, measuring 10.1 cm. Visualized portions of the abdominal aorta and IVC are normal. IMPRESSION: 1. Fatty infiltration of the liver. 2. Pancreas is obscured due to overlying bowel gas. 3. The gallbladder is normal. Electronically signed by: Flaquito Hutton MD (10/17/2019 8:50 PM) [facility]
[2019-10-17] MEDS ORDERED: MIRTAZAPINE 15 MG TABLET PO SCH (21:00)
[2019-10-17 23:07] VITALS: BP 137/88
[2019-10-18 03:13] VITALS: BP 123/86
[2019-10-18 05:30] LABS: BASO # 0.1 x10^3/uL (0.0-0.2); BASO % 1 % (0-3); EOS # 0.5 x10^3/uL (0.0-0.7); EOS % 7 % (0-3); HEMATOCRIT 41.9 % (39.0-53.0); HEMOGLOBIN 14.3 g/dL (13.0-17.5); LYMPH # 2.3 x10^3/uL (1.0-4.8); LYMPH % 29 % (24-48); MEAN CORPUSCULAR HEMOGLOBIN 32 pg (25-35); MEAN CORPUSCULAR HGB CONC 34 g/dL (31-37); MEAN CORPUSCULAR VOLUME 93 fL (79-100); MONO # 0.8 x10^3/uL (0.0-1.1); MONO % 10 % (0-9); NEUT # 4.2 x10^3/uL (1.8-7.7); NEUT % 54 % (31-73); PLATELET COUNT 296 x10^3/uL (140-400); RED BLOOD COUNT 4.53 x10^6/uL (4.30-5.70); RED CELL DISTRIBUTION WIDTH 14.8 % (11.5-14.5); WHITE BLOOD COUNT 7.9 x10^3/uL (4.0-11.0)
[2019-10-18 07:00] VITALS: BP 112/72
[2019-10-18] MEDS: MULTIVIT INFUSN,ADULT 4,VIT K 10 ML, THIAMINE INJ 100 MG, FOLIC ACID INJ 1 MG in IV NOR... IV SCH (09:00)
[2019-10-18 10:55] VITALS: BP 127/83
--- NOTE | 2019-10-18 11:09 | PDOC ---
Subjective: Subjective: No complaints. Denies pain, tolerating diet. Objective: Vital Signs: Vital Signs Date Time Temp Pulse Resp B/P (MAP) Pulse Ox O2 Delivery O2 Flow Rate FiO2 10/18/19 10:55 97.8 91 18 127/83 (98) 96 Room Air 97.8 Labs: Laboratory Tests Test 10/17/19 14:53 10/18/19 04:13 Sodium Level 141 mmol/L Potassium Level 3.6 mmol/L Chloride Level 108 mmol/L Carbon Dioxide Level 24 mmol/L Anion Gap 9 Blood Urea Nitrogen 8 mg/dL Creatinine 0.7 mg/dL Estimated GFR (Cockcroft-Gault) 141.0 BUN/Creatinine Ratio 11 Glucose Level 83 mg/dL Calcium Level 7.7 mg/dL Total Bilirubin 0.4 mg/dL Aspartate Amino Transf (AST/SGOT) 89 U/L Alanine Aminotransferase (ALT/SGPT) 132 U/L Alkaline Phosphatase 123 U/L Total Protein 6.4 g/dL Albumin 3.3 g/dL Albumin/Globulin Ratio 1.1 White Blood Count 7.9 x10^3/uL Red Blood Count 4.53 x10^6/uL Hemoglobin 14.3 g/dL Hematocrit 41.9 % Mean Corpuscular Volume 93 fL Mean Corpuscular Hemoglobin 32 pg Mean Corpuscular Hemoglobin Concent 34 g/dL Red Cell Distribution Width 14.8 % Platelet Count 296 x10^3/uL Neutrophils (%) (Auto) 54 % Lymphocytes (%) (Auto) 29 % Monocytes (%) (Auto) 10 % Eosinophils (%) (Auto) 7 % Basophils (%) (Auto) 1 % Neutrophils # (Auto) 4.2 x10^3/uL Lymphocytes # (Auto) 2.3 x10^3/uL Monocytes # (Auto) 0.8 x10^3/uL Eosinophils # (Auto) 0.5 x10^3/uL Basophils # (Auto) 0.1 x10^3/uL Lipase 149 U/L Imaging: Abd US 10/16 IMPRESSION: 1. Fatty infiltration of the liver. 2. Pancreas is obscured due to overlying bowel gas. 3. The gallbladder is normal. PE: GEN: NAD LUNGS: CTAB HEART: RRR ABD: S/ND/NT NEURO/PSYCH: A & O 3 A/P: +alcohol, lactic acidosis Epigastric pain - resolved Elevated LFTs - improved, viral Hepatitis panel pending Fatty liver -- Seen earlier when [employer] unavailable Improved GI-munoz. ADAT, DC per primary. Justicifation of Admission Dx: Justifications for Admission: Justification of Admission Dx: Yes Altered Mental Status: Altered Mental Status YAYO CERON Oct 18, 2019 11:09
[2019-10-18] MEDS: EMTRICITAB/TENOFOVIR 200/300MG TABLET. PO SCH (13:23)
[2019-10-18] MEDS: VENLAFAXINE 75 MG TABLET. PO SCH (13:23)
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
== END 2019-10-18 14:56 | disposition home or self-care (01) | DRG 914 ==
LOC: ER 02:26 → 6 SOUTH 04:45 → OBSVTOIN 05:04
PROVIDERS: ADMIT Internal Medicine; ATTEND Internal Medicine
DX: S09.8XXA Other specified injuries of head, initial encounter (principal); E87.2 Acidosis; F10.129 Alcohol abuse with intoxication, unspecified; F17.200 Nicotine dependence, unspecified, uncomplicated; K76.0 Fatty (change of) liver, not elsewhere classified; W22.01XA Walked into wall, initial encounter; Z78.1 Physical restraint status; Z83.3 Family history of diabetes mellitus; Z90.49 Acquired absence of other specified parts of digestive tract; F41.9 Anxiety disorder, unspecified; Z79.899 Other long term (current) drug therapy; X58.XXXA Exposure to other specified factors, initial encounter; Y93.89 Activity, other specified; Y92.89 Other specified places as the place of occurrence of the external cause; Y99.8 Other external cause status; Z88.0 Allergy status to penicillin; Z91.018 Allergy to other foods
CPT/HCPCS: 36415; 70450; 70486; 72125; 73130; 76700; 80053; 80307; 81001; 83605; 83690; 85025; 86705; 86709; 86803; 87340; G0379; G0480; J1630; J2060; J3411; J3490; J7030; G0378

== ENCOUNTER 2019-11-26 10:20 | Emergency (ER) | payer OTHER ==
[~2019-11-26] VITALS: Ht 170.2 cm; Wt 72.7 kg
--- NOTE | 2019-11-26 10:30 | PHYS DOC ---
Past Medical History Past Medical History: Anxiety Additional Past Medical Histor: On Truvada for prophylaxis, but the patient is not HIV positive Past Surgical History: Appendectomy, Other Additional Past Surgical Histo: rhinoplasty Smoking Status: Light Tobacco Smoker Alcohol Use: Occasionally Drug Use: None General Adult HPI: HPI: Patient is 24-year-old male with past medical history of anxiety and panic attacks who presents to the emergency room after having a panic attack that started at work. EMS gave him 10 of IM Versed.. Patient states the only thing that calms him down is his . He has had these previously. Review of Systems: Review of Systems: General: Denies fever, chills, sweats, fatigue Eyes: Denies drainage, blurred vision, eye redness HENT: Denies rhinorrhea, sore throat, earache Respiratory: Denies cough, shortness of breath, wheezing Cardiac: Denies edema, palpitations, chest pain GI: Denies abdominal pain, Nausea, vomiting MSK: Denies back pain, neck pain Skin: Denies rash, jaundice Neuro: Denies headache, dizziness Psychiatric: Denies SI/HI reports anxiety Heart Score: Risk Factors: Risk Factors: DM, Current or recent (<one month) smoker, HTN, HLP, family history of CAD, obesity. Risk Scores: Score 0 - 3: 2.5% MACE over next 6 weeks - Discharge Home Score 4 - 6: 20.3% MACE over next 6 weeks - Admit for Clinical Observation Score 7 - 10: 72.7% MACE over next 6 weeks - Early Invasive Strategies Allergies: Allergies: Allergies Coded Allergies Type Severity Reaction Last Updated Verified Penicillins Allergy Intermediate 10/17/19 Yes junie Allergy Intermediate 10/17/19 Yes Physical Exam: PE: General: Awake, alert, moderate distress. Well Nourished, well hydrated. Cooperative HEENT: Atraumatic, EOMI, PERRL, airway patent, moist oral mucosa Neck: Supple, trachea midline Respiratory: CTA bilaterally, normal effort, no wheezing/crackles CV: RRR, no murmur, cap refill <2 GI: Soft, nondistended, nontender, no masses MSK: No obvious deformities Skin: Warm, dry, intact Neuro: A&O x3, speech NL, sensory and motor grossly intact, no focal deficits Psych: crying, anxious, shaking EKG: EKG: [] Radiology/Procedures: Radiology/Procedures: [] Course & Med Decision Making: Course & Med Decision Making Pertinent Labs and Imaging studies reviewed. (See chart for details) Patient is 24-year-old male with past medical history of anxiety. He presents to the emergency room with a panic attack. He was given Versed prior to arrival. Patient was observed and improved in the emergency room. No work-up is needed. Patient's test results and vitals while in the ED were fully reviewed and discussed with the patient. Patient is stable and at this time does not need admission to the hospital. We have discussed strict return precautions and the importance of following up with their Primary Care Physician. Patient stated understanding and was given an opportunity to ask any questions. Patient is in agreement with plan. Dragon Disclaimer: Dragon Disclaimer: This electronic medical record was generated, in whole or in part, using a voice recognition dictation system. Departure Departure Impression: Primary Impression: Anxiety Disposition: 01 HOME, SELF-CARE Condition: IMPROVED Referrals: DERRELL DOMÍNGUEZ MD (PCP) Patient Instructions: Anxiety and Panic Attacks, [id number] Justicifation of Admission Dx: Justifications for Admission: Justification of Admission Dx: N/A Altered Mental Status: Altered Mental Status JASKARAN COWAN MD Nov 26, 2019 10:30
[2019-11-26 12:47] VITALS: BP 129/73
== END 2019-11-26 12:55 | disposition home or self-care (01) ==
LOC: ER 10:20
DX: F41.9 Anxiety disorder, unspecified (principal); Z90.89 Acquired absence of other organs; Z98.890 Other specified postprocedural states; Z88.0 Allergy status to penicillin; Z91.018 Allergy to other foods
CPT/HCPCS: 99285

== ENCOUNTER 2020-04-26 09:17 | Emergency (ER) | payer OTHER ==
[~2020-04-26] VITALS: Ht 172.7 cm; Wt 80.0 kg
--- NOTE | 2020-04-26 09:41 | PHYS DOC ---
Past Medical History Past Medical History: Anxiety, Depression, Other Additional Past Medical Histor: Truvada for prophylaxis, but the patient is not HIV positive, panic attacks Past Surgical History: Appendectomy, Other Additional Past Surgical Histo: rhinoplasty Smoking Status: Light Tobacco Smoker Alcohol Use: Occasionally Drug Use: None General Adult EDM: Chief Complaint: ANXIETY/PANIC ATTACK HPI: HPI: Patient is a 25 year old male with history of anxiety, depression, who presents to the ED today with for panic attack that began this morning while at work at [employer]. He tried taking his lorazepam with no relief. Patient's partner is in the ED and states patient has been going through therapy and they have been weaning off his antianxiety medication and offering him more therapy sessions which was working until today. Patient denies any suicidal homicidal ideations. Patient reports Versed usually works for his symptoms. Review of Systems: Review of Systems: Constitutional: Denies fever or chills. [] Eyes: Denies change in visual acuity. [] HENT: Denies nasal congestion or sore throat. [] Respiratory: Denies cough or shortness of breath. [] Cardiovascular: Denies chest pain or edema. [] GI: Denies abdominal pain, nausea, vomiting, bloody stools or diarrhea. [] : Denies dysuria. [] Musculoskeletal: Denies back pain or joint pain. [] Integument: Denies rash. [] Neurologic: Denies headache, focal weakness or sensory changes. [] Endocrine: Denies polyuria or polydipsia. [] Lymphatic: Denies swollen glands. [] Psychiatric: Reports anxiety Heart Score: Risk Factors: Risk Factors: DM, Current or recent (<one month) smoker, HTN, HLP, family history of CAD, obesity. Risk Scores: Score 0 - 3: 2.5% MACE over next 6 weeks - Discharge Home Score 4 - 6: 20.3% MACE over next 6 weeks - Admit for Clinical Observation Score 7 - 10: 72.7% MACE over next 6 weeks - Early Invasive Strategies Allergies: Allergies: Allergies Coded Allergies Type Severity Reaction Last Updated Verified Penicillins Allergy Intermediate 10/17/19 Yes junie Allergy Intermediate 10/17/19 Yes Physical Exam: PE: Constitutional: Well developed, well nourished, no acute distress, non-toxic appearance. [] HENT: Normocephalic, atraumatic, bilateral external ears normal, oropharynx moist, no oral exudates, nose normal. [] Eyes: PERRLA, EOMI, conjunctiva normal, no discharge. [] Neck: Normal range of motion, no tenderness, supple, no stridor. [] Cardiovascular:Heart rate regular rhythm, no murmur [] Lungs & Thorax: Bilateral breath sounds clear to auscultation [] Abdomen: Bowel sounds normal, soft, no tenderness, no masses, no pulsatile masses. [] Skin: Warm, dry, no erythema, no rash. [] Back: No tenderness, no CVA tenderness. [] Extremities: No tenderness, no cyanosis, no clubbing, ROM intact, no edema. [] Neurologic: Alert and oriented X 3, normal motor function, normal sensory function, no focal deficits noted. [] Psychologic: Very anxious, shaking, finger contraction bilaterally due to anxiety EKG: EKG: [] Radiology/Procedures: Radiology/Procedures: [] Course & Med Decision Making: Course & Med Decision Making Pertinent Labs and Imaging studies reviewed. (See chart for details) This is a 25-year-old male patient with history of anxiety presenting today with an anxiety panic attack that began this morning while at work. Patient tried his lorazepam with no relief. He reports Versed usually works for his symptoms. He arrives in the ED with full panic attack alana and shaking. With permission from Dr. Butts i ordered Versed 5 mg IM On re-evaluation patient is feeling better. Currently relaxed. Discharge to home. Follow-up with his own therapist and primary care doctor as soon as possible Robert Disclaimer: Robert Disclaimer: This electronic medical record was generated, in whole or in part, using a voice recognition dictation system. Departure Departure Impression: Primary Impression: Generalized anxiety disorder with panic attacks Disposition: 01 DC HOME SELF CARE/HOMELESS Condition: STABLE Referrals: DERRELL DOMÍNGUEZ MD (PCP) Follow up in the course of this week with your own doctor and therapist Patient Instructions: Anxiety and Panic Attacks, [id number] Additional Instructions: Please follow up with your therapist and primary care doctor as soon as you can REMY CRUZ APRN Apr 26, 2020 09:41
[2020-04-26] MEDS ORDERED: MIDAZOLAM HCL/PF 5 MG/5 ML VIAL. IM ONE (09:45)
[2020-04-26 12:16] VITALS: BP 134/63
== END 2020-04-26 14:20 | disposition home or self-care (01) ==
LOC: ER 09:17
DX: F41.1 Generalized anxiety disorder (principal); F41.9 Anxiety disorder, unspecified; F32.9 Major depressive disorder, single episode, unspecified; Z90.89 Acquired absence of other organs; Z98.890 Other specified postprocedural states; Z88.0 Allergy status to penicillin; Z91.018 Allergy to other foods
CPT/HCPCS: 93005; 96372; 99283; J2250

== ENCOUNTER 2020-05-16 11:59 | Emergency (ER) | payer OTHER ==
[~2020-05-16] VITALS: Ht 167.6 cm; Wt 86.9 kg
--- NOTE | 2020-05-16 12:54 | PHYS DOC ---
Past Medical History Past Medical History: Anxiety, Depression, Other Additional Past Medical Histor: Truvada for prophylaxis, but the patient is not HIV positive, panic attacks Past Surgical History: Appendectomy, Other Additional Past Surgical Histo: rhinoplasty Smoking Status: Current Some Day Smoker Alcohol Use: Occasionally Drug Use: None General Adult EDM: Chief Complaint: OTHER COMPLAINTS HPI: HPI: Patient is a 25 year old male who presents with right foot pain for the last 2 days every time he stands up and puts pressure on the foot. He states it is a aching sharp type pain to the outer posterior part of the foot upon standing. He is ambulatory with a steady gait. He denies injury. He denies doing any excessive walking or running or anything new. Patient had a history of alcoholism, anxiety, panic attacks, gastroenteritis. When the patient stands he rates his pain a 8 out of 10. He states it does not radiate. The only thing that I could better is staying off of his feet. Denies numbness or tingling, s welling, coolness of the extremity, injury, skin color change, weakness. Review of Systems: Review of Systems: Constitutional: Denies fever or chills. [] Eyes: Denies change in visual acuity. [] HENT: Denies nasal congestion or sore throat. [] Respiratory: Denies cough or shortness of breath. [] Cardiovascular: Denies chest pain or edema. [] GI: Denies abdominal pain, nausea, vomiting, bloody stools or diarrhea. [] : Denies dysuria. [] Musculoskeletal: Denies back pain. +Right foot joint pain. [] Integument: Denies rash. [] Neurologic: Denies headache, focal weakness or sensory changes. [] Endocrine: Denies polyuria or polydipsia. [] Lymphatic: Denies swollen glands. [] Psychiatric: Denies depression or anxiety. [] Heart Score: Risk Factors: Risk Factors: DM, Current or recent (<one month) smoker, HTN, HLP, family history of CAD, obesity. Risk Scores: Score 0 - 3: 2.5% MACE over next 6 weeks - Discharge Home Score 4 - 6: 20.3% MACE over next 6 weeks - Admit for Clinical Observation Score 7 - 10: 72.7% MACE over next 6 weeks - Early Invasive Strategies Allergies: Allergies: Allergies Coded Allergies Type Severity Reaction Last Updated Verified Penicillins Allergy Severe sob 05/16/20 Yes junie Allergy Severe angioedema 05/16/20 Yes Physical Exam: PE: Constitutional: Well developed, well nourished, no acute distress, non-toxic appearance. [] HENT: Normocephalic, atraumatic, bilateral external ears normal, oropharynx moist, no oral exudates, nose normal. [] Eyes: PERRLA, EOMI, conjunctiva normal, no discharge. [] Neck: Normal range of motion, no tenderness, supple, no stridor. [] Cardiovascular:Heart rate regular rhythm, no murmur [] Lungs & Thorax: Bilateral breath sounds clear to auscultation [] Abdomen: Bowel sounds normal, soft, no tenderness, no masses, no pulsatile masses. [] Skin: Warm, dry, no erythema, no rash. [] Back: No tenderness, no CVA tenderness. [] Extremities: No tenderness, no cyanosis, no clubbing, ROM intact, no edema. [] Neurologic: Alert and oriented X 3, normal motor function, normal sensory function, no focal deficits noted. [] Psychologic: Affect normal, judgement normal, mood normal. ++ Normal physical exam [] Current Patient Data: Vital Signs: Vital Signs Date Time Temp Pulse Resp B/P (MAP) Pulse Ox O2 Delivery O2 Flow Rate FiO2 05/16/20 12:05 98.9 99 16 134/93 (107) 97 Room Air 98.9 EKG: EKG: [] Radiology/Procedures: Radiology/Procedures: [] Impression: [facility] [address] [place] [address] IMAGING REPORT Signed PATIENT: PATRICK GRIFFIN ACCOUNT: [id number] : 1995 LOCATION: ER AGE: 25 SEX: M EXAM STATUS: REG ER ORD. PHYSICIAN: GLEN MONTANO APRN REASON: PAIN TOWARD TOES WITH STANDING PROCEDURE: FOOT RIGHT 3V XR FOOT_RIGHT 3 VIEWS 05/16/2020 12:28 PM INDICATION: Pain towards the toes with standing. COMPARISON: None available. TECHNIQUE: 3 views the right foot are provided. FINDINGS/ IMPRESSION: There is no acute fracture or dislocation. Joint spaces are maintained. Bone mineralization is within normal limits. Regional soft tissues are within normal limits. There is no soft tissue gas or osseous erosion. No radiopaque foreign body. Electronically signed by: Lenin Ronquillo MD (05/16/2020 1:03 PM) [id number] DICTATED and SIGNED BY: LENIN RONQUILLO MD DATE: 05/16/20 [id number] Course & Med Decision Making: Course & Med Decision Making Pertinent Labs and Imaging studies reviewed. (See chart for details) See HPI. Alert and oriented x4. Speaks in full complete sentences. No tenderness, swelling or deformity to the foot. No bruising, abrasions or lacerations. Skin pink warm and dry. Pedal pulses strong and present. Full range of motion of the toes and of the foot. He is ambulatory with a steady gait. [] Dragon Disclaimer: Dragon Disclaimer: This electronic medical record was generated, in whole or in part, using a voice recognition dictation system. Departure Departure Impression: Primary Impression: Foot pain, right Disposition: 01 DC HOME SELF CARE/HOMELESS Condition: STABLE Referrals: DERRELL DOMÍNGUEZ MD (PCP) Patient Instructions: Foot Sprain-Brief Additional Instructions: Make sure you are wearing shoes with a good insole or get new insoles for your shoes. Use Ibuprofen for your pain. Follow up with primary care provider. Scripts Ibuprofen (IBUPROFEN) 600 Mg Tablet 600 MG PO PRN Q6HRS PRN for INFLAMMATION, #24 TAB Prov: GLEN MONTANO APRN 05/16/20 GLEN MONTANO APRN May 16, 2020 12:54
--- NOTE | 2020-05-16 13:05 | RAD ---
XR FOOT_RIGHT 3 VIEWS 05/16/2020 12:28 PM INDICATION: Pain towards the toes with standing. COMPARISON: None available. TECHNIQUE: 3 views the right foot are provided. FINDINGS/ IMPRESSION: There is no acute fracture or dislocation. Joint spaces are maintained. Bone mineralization is within normal limits. Regional soft tissues are within normal limits. There is no soft tissue gas or osseou s erosion. No radiopaque foreign body. Electronically signed by: Chioma Mcgovern MD (05/16/2020 1:03 PM) [id number]
[2020-05-16] MEDS ORDERED: IBUP-1007 PO (13:10)
[2020-05-16 13:20] VITALS: BP 128/79
== END 2020-05-16 13:20 | disposition home or self-care (01) ==
LOC: ER 11:59
DX: M79.671 Pain in right foot (principal); F41.9 Anxiety disorder, unspecified; F32.9 Major depressive disorder, single episode, unspecified; Z90.89 Acquired absence of other organs; Z98.890 Other specified postprocedural states; Z87.891 Personal history of nicotine dependence; Z88.0 Allergy status to penicillin; Z91.018 Allergy to other foods
CPT/HCPCS: 73630; 99283

== ENCOUNTER → 2020-06-12 | Outpatient (CLI) | payer OTHER ==
[2020-05-16 13:20] VITALS: BP 128/79
[~2020-06-12] MED LIST changes: +IBUP-1007 PO
[2020-06-12 10:52] LABS: BASO # 0.1 x10^3/uL (0.0-0.2); BASO % 1 % (0-3); EOS # 0.6 x10^3/uL (0.0-0.7); EOS % 9 % (0-3); HEMATOCRIT 44.7 % (39.0-53.0); HEMOGLOBIN 15.3 g/dL (13.0-17.5); LYMPH # 1.8 x10^3/uL (1.0-4.8); LYMPH % 25 % (24-48); MEAN CORPUSCULAR HEMOGLOBIN 31 pg (25-35); MEAN CORPUSCULAR HGB CONC 34 g/dL (31-37); MEAN CORPUSCULAR VOLUME 91 fL (79-100); MONO # 0.8 x10^3/uL (0.0-1.1); MONO % 11 % (0-9); NEUT # 3.9 x10^3/uL (1.8-7.7); NEUT % 55 % (31-73); PLATELET COUNT 383 x10^3/uL (140-400); RED BLOOD COUNT 4.89 x10^6/uL (4.30-5.70); RED CELL DISTRIBUTION WIDTH 14.1 % (11.5-14.5); WHITE BLOOD COUNT 7.2 x10^3/uL (4.0-11.0)
[2020-06-12 11:12] LABS: ALBUMIN/GLOBULIN RATIO 1.1 (1.0-1.7); CALCIUM 8.8 mg/dL (8.5-10.1); CREATININE 0.8 mg/dL (0.7-1.3); GFR 119.8; POTASSIUM 4.1 mmol/L (3.5-5.1); TOTAL BILIRUBIN 0.6 mg/dL (0.2-1.0); TOTAL PROTEIN 7.8 g/dL (6.4-8.2)
== END ==
LOC: LAB 10:05
PROVIDERS: ATTEND Family Medicine
DX: Z20.6 Contact with and (suspected) exposure to human immunodeficiency virus [HIV] (principal)
CPT/HCPCS: 36415; 80053; 85025; 86592; 86703

== ENCOUNTER 2020-08-25 13:32 | Emergency (ER) | payer OTHER ==
[~2020-08-25] VITALS: Ht 175.3 cm; Wt 81.8 kg
[2020-08-25] MEDS ORDERED: IV NORMAL SALINE 1000ML BAG 1,000 ML IV ONE ×2 (13:45→15:30)
[2020-08-25 14:25] LABS: CALCIUM 9.6 mg/dL (8.5-10.1); CREATININE 1.1 mg/dL (0.7-1.3); POTASSIUM 4.4 mmol/L (3.5-5.1)
[2020-08-25 14:26] LABS: BASO % 0 % (0-3); EOS # 0.1 x10^3/uL (0.0-0.7); EOS % 0 % (0-3); HEMATOCRIT 48.7 % (39.0-53.0); HEMOGLOBIN 16.4 g/dL (13.0-17.5); LYMPH # 2.5 x10^3/uL (1.0-4.8); LYMPH % 17 % (24-48); MEAN CORPUSCULAR HEMOGLOBIN 30 pg (25-35); MEAN CORPUSCULAR HGB CONC 34 g/dL (31-37); MEAN CORPUSCULAR VOLUME 90 fL (79-100); MONO % 6 % (0-9); NEUT # 11.4 x10^3/uL (1.8-7.7); NEUT % 76 % (31-73); PLATELET COUNT 492 x10^3/uL (140-400); RED CELL DISTRIBUTION WIDTH 13.6 % (11.5-14.5)
[2020-08-25 14:31] LABS: ALBUMIN 4.9 g/dL (3.4-5.0); ALBUMIN/GLOBULIN RATIO 1.2 (1.0-1.7); MAGNESIUM 2.1 mg/dL (1.8-2.4); TOTAL BILIRUBIN 0.4 mg/dL (0.2-1.0); TOTAL PROTEIN 8.9 g/dL (6.4-8.2)
--- NOTE | 2020-08-25 15:43 | PHYS DOC ---
Past Medical History Past Medical History: Anxiety, Depression, Other Additional Past Medical Histor: Truvada for prophylaxis, but the patient is not HIV positive, panic attacks Past Surgical History: Appendectomy, Other Additional Past Surgical Histo: rhinoplasty Smoking Status: Current Some Day Smoker Alcohol Use: Occasionally Drug Use: None General Adult EDM: Chief Complaint: ANXIETY/PANIC ATTACK HPI: HPI: Patient is a 25 year old [f__sex] who presents with [] Review of Systems: Review of Systems: Constitutional: Denies fever or chills Eyes: Denies redness or eye pain HENT: Denies nasal congestion or sore throat Respiratory: Denies cough or shortness of breath Cardiovascular: Denies chest pain or palpitations GI: Denies abdominal pain, nausea, or vomiting : Denies dysuria or hematuria Musculoskeletal: Denies back pain or joint pain Integument: Denies rash or skin lesions Neurologic: Denies headache, focal weakness or sensory changes Complete systems were reviewed and found to be within normal limits, except as documented in this note. Heart Score: C/O Chest Pain: N/A Current Medications: Current Medications Medications (Trade) Dose Ordered Sig/Андрей Start Time Stop Time Status Last Admin Dose Admin Lorazepam (Ativan Inj) 1 mg 1X ONCE 08/25/20 14:30 08/25/20 14:31 DC 08/25/20 14:32 1 MG Sodium Chloride 1,000 ml @ 1,000 mls/hr 1X ONCE 08/25/20 15:30 08/25/20 16:29 08/25/20 15:30 1,000 MLS/HR Allergies: Allergies: Allergies Coded Allergies Type Severity Reaction Last Updated Verified Penicillins Allergy Severe sob 05/16/20 Yes junie Allergy Severe angioedema 05/16/20 Yes Physical Exam: PE: Constitutional: Well developed, well nourished, no acute distress, non-toxic appearance HENT: Normocephalic, atraumatic Eyes: PERRL, EOMI, conjunctiva normal, no discharge Neck: Normal range of motion, no tenderness, supple Lungs & Thorax: No respiratory distress, equal chest rise and fall Abdomen: Soft, no tenderness Skin: Warm, dry, no erythema, no rash Back: No tenderness, no CVA tenderness Extremities: No tenderness, ROM intact, no edema Neurologic: Alert and oriented X 3, normal motor function, normal sensory function, no focal deficits noted Psychologic: Affect normal, judgment normal Current Patient Data: Labs: Laboratory Tests Test 08/25/20 13:55 White Blood Count 15.0 x10^3/uL (4.0-11.0) H Red Blood Count 5.40 x10^6/uL (4.30-5.70) Hemoglobin 16.4 g/dL (13.0-17.5) Hematocrit 48.7 % (39.0-53.0) Mean Corpuscular Volume 90 fL (79-100) Mean Corpuscular Hemoglobin 30 pg (25-35) Mean Corpuscular Hemoglobin Concent 34 g/dL (31-37) Red Cell Distribution Width 13.6 % (11.5-14.5) Platelet Count 492 x10^3/uL (140-400) H Neutrophils (%) (Auto) 76 % (31-73) H Lymphocytes (%) (Auto) 17 % (24-48) L Monocytes (%) (Auto) 6 % (0-9) Eosinophils (%) (Auto) 0 % (0-3) Basophils (%) (Auto) 0 % (0-3) Neutrophils # (Auto) 11.4 x10^3/uL (1.8-7.7) H Lymphocytes # (Auto) 2.5 x10^3/uL (1.0-4.8) Monocytes # (Auto) 1.0 x10^3/uL (0.0-1.1) Eosinophils # (Auto) 0.1 x10^3/uL (0.0-0.7) Basophils # (Auto) 0.0 x10^3/uL (0.0-0.2) Sodium Level 144 mmol/L (136-145) Potassium Level 4.4 mmol/L (3.5-5.1) Chloride Level 102 mmol/L (98-107) Carbon Dioxide Level 24 mmol/L (21-32) Anion Gap 18 (6-14) H Blood Urea Nitrogen 8 mg/dL (8-26) Creatinine 1.1 mg/dL (0.7-1.3) Estimated GFR (Cockcroft-Gault) 83.0 BUN/Creatinine Ratio 7 (6-20) Glucose Level 69 mg/dL (70-99) L Lactic Acid Level 9.4 mmol/L (0.4-2.0) *H Calcium Level 9.6 mg/dL (8.5-10.1) Magnesium Level 2.1 mg/dL (1.8-2.4) Total Bilirubin 0.4 mg/dL (0.2-1.0) Aspartate Amino Transferase (AST) 68 U/L (15-37) H Alanine Aminotransferase (ALT) 103 U/L (16-63) H Alkaline Phosphatase 122 U/L (46-116) H Total Protein 8.9 g/dL (6.4-8.2) H Albumin 4.9 g/dL (3.4-5.0) Albumin/Globulin Ratio 1.2 (1.0-1.7) Laboratory Tests 08/25/20 13:55 Laboratory Tests 08/25/20 13:55 Vital Signs: Vital Signs Date Time Temp Pulse Resp B/P (MAP) Pulse Ox O2 Delivery O2 Flow Rate FiO2 08/25/20 13:40 97.0 156 34 162/76 (104) 97 Room Air 97.0 EKG: EKG: @1522 NSR at 81bpm, NO ST elevation, QRS 90ms, QT/QTc 344/400ms Radiology/Procedures: Radiology/Procedures: [] Course & Med Decision Making: Course & Med Decision Making Pertinent Labs and Imaging studies reviewed. (See chart for details) [] Dragon Disclaimer: Dragon Disclaimer: This electronic medical record was generated, in whole or in part, using a voice recognition dictation system. Departure Departure Impression: Primary Impression: Panic attack Additional Impressions: Lactic acidosis Nausea Disposition: HOME / SELF CARE / HOMELESS Condition: STABLE Referrals: DERRELL DOMÍNGUEZ MD (PCP) Patient Instructions: Anxiety and Panic Attacks, [id number], Lactic Acid, Lactate, Nausea, Adult, [id number] Scripts Ibuprofen (IBUPROFEN) 600 Mg Tablet 600 MG PO Q8HRS PRN for PAIN, #30 TAB Prov: ALESIA LYON DO 08/25/20 Ondansetron (ONDANSETRON ODT) 4 Mg Tab.rapdis 1 TAB PO PRN Q6-8HRS PRN for NAUSEA, #16 TAB Prov: ALESIA LYON DO 08/25/20 ALESIA LYON DO August 25, 2020 15:43
[2020-08-25 16:30] VITALS: BP 163/95
[2020-08-25] MEDS ORDERED: IBUP-1007 PO (17:07)
[2020-08-25] MEDS ORDERED: ONDA4TAB12 PO (17:07)
--- NOTE | 2020-08-25 20:20 | EKG ---
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
== END 2020-08-25 17:14 | disposition home or self-care (01) ==
LOC: ER 13:32
DX: F41.0 Panic disorder [episodic paroxysmal anxiety] (principal); E87.2 Acidosis; R11.0 Nausea; F32.9 Major depressive disorder, single episode, unspecified; Z90.89 Acquired absence of other organs
CPT/HCPCS: 36415; 80053; 83605; 83735; 85025; 93005; 96361; 96374; 96376; 99285; J2060; J7030

== ENCOUNTER → 2020-10-06 | Outpatient (CLI) | payer OTHER ==
[~2020-10-06] MED LIST changes: +ONDA4TAB12 PO
[2020-10-06 12:22] LABS: ALBUMIN 4.7 g/dL (3.4-5.0); ALBUMIN/GLOBULIN RATIO 1.2 (1.0-1.7); CALCIUM 9.6 mg/dL (8.5-10.1); CREATININE 0.9 mg/dL (0.7-1.3); GFR 104.6; POTASSIUM 4.4 mmol/L (3.5-5.1); TOTAL PROTEIN 8.5 g/dL (6.4-8.2)
== END ==
LOC: LAB 11:11
PROVIDERS: ATTEND Family Medicine
DX: Z20.2 Contact with and (suspected) exposure to infections with a predominantly sexual mode of transmission (principal); Z79.899 Other long term (current) drug therapy
CPT/HCPCS: 36415; 80053; 86703

== ENCOUNTER → 2020-10-11 | Outpatient (CLI) | payer OTHER ==
[~2020-10-11] MED LIST changes: +GADOTERATE 7.5 MMOL/15ML VIAL. IVP ONE
--- NOTE | 2020-10-11 09:49 | RAD ---
EXAMINATION: Magnetic resonance imaging (MRI) of the brain and brainstem without and with contrast 8:03 AM HISTORY: Anxiety TECHNIQUE: Multiplanar multi-weighted MRI of the brain and brainstem was performed without and with i ntravenous contrast using the general brain protocol. Contrast information: 15 mL Gadolinium based contrast COMPARISON: CT head 10/17/2019. FINDINGS: Evaluation degraded by susceptibility artifact along the left face. The scalp and calvarium are normal. The superior sagittal sinus demonstrates normal venous flow. The corpus callosum is normal in shape and signal intensity. The posterior fossa is unremarkable. The p ituitary and sella are normal. The brainstem and craniocervical junction are unremarkable. Diffusion weighted images reveal no hyperintensities to suggest acute cerebral infarction. The suscep tibility weighted sequences reveal no evidence of acute or chronic hemorrhage. The ventricles are nor mal in size and position without evidence of hydrocephalus. There are no areas of abnormal contrast enhancement. Near complete opacification of the paranasal sinuses including the left frontal sinus, ethmoid air ce lls, sphenoid sinuses and mild mucosal right maxillary sinus. Hypoplasia of the right frontal sinus. The visualized portions of the mastoids are unremarkable. The orbits appear normal. Normal flow voi ds are demonstrated in the carotid arteries and basilar artery. IMPRESSION: 1. No evidence for acute or subacute ischemia. 2. 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 Findings are similar when compared to prior examination from 10/17/2019 and may be chronic. Electronically signed by: Chioma Mcgovern MD (10/11/2020 9:46 AM) [facility]
== END ==
LOC: MRI 08:44
PROVIDERS: ATTEND Family Medicine
DX: F41.9 Anxiety disorder, unspecified (principal); J34.89 Other specified disorders of nose and nasal sinuses
CPT/HCPCS: 70553; A9575

== ENCOUNTER → 2020-10-31 | Outpatient (CLI) | payer OTHER ==
[~2020-10-31] MED LIST changes: -GADOTERATE 7.5 MMOL/15ML VIAL. IVP ONE
[2020-10-31 13:21] LABS: CALCIUM 9.3 mg/dL (8.5-10.1); CREATININE 0.8 mg/dL (0.7-1.3); GFR 119.8; POTASSIUM 4.5 mmol/L (3.5-5.1); TOTAL BILIRUBIN 0.5 mg/dL (0.2-1.0)
== END ==
LOC: LAB 12:18
PROVIDERS: ATTEND Family Medicine
DX: Z20.2 Contact with and (suspected) exposure to infections with a predominantly sexual mode of transmission (principal); Z79.899 Other long term (current) drug therapy
CPT/HCPCS: 36415; 80053; 83605; 86703

== ENCOUNTER → 2020-11-15 | Outpatient (CLI) | payer OTHER ==
[2020-11-15 15:23] LABS: BASO # 0.1 x10^3/uL (0.0-0.2); BASO % 1 % (0-3); EOS # 0.2 x10^3/uL (0.0-0.7); EOS % 3 % (0-3); HEMATOCRIT 47.7 % (39.0-53.0); HEMOGLOBIN 16.3 g/dL (13.0-17.5); LYMPH # 2.8 x10^3/uL (1.0-4.8); LYMPH % 32 % (24-48); MEAN CORPUSCULAR HEMOGLOBIN 31 pg (25-35); MEAN CORPUSCULAR HGB CONC 34 g/dL (31-37); MEAN CORPUSCULAR VOLUME 92 fL (79-100); MONO # 0.8 x10^3/uL (0.0-1.1); MONO % 9 % (0-9); NEUT # 4.8 x10^3/uL (1.8-7.7); NEUT % 55 % (31-73); PLATELET COUNT 369 x10^3/uL (140-400); RED BLOOD COUNT 5.18 x10^6/uL (4.30-5.70); RED CELL DISTRIBUTION WIDTH 15.1 % (11.5-14.5); WHITE BLOOD COUNT 8.6 x10^3/uL (4.0-11.0)
[2020-11-15 15:39] LABS: ALBUMIN/GLOBULIN RATIO 0.9 (1.0-1.7); CALCIUM 9.6 mg/dL (8.5-10.1); CREATININE 0.8 mg/dL (0.7-1.3); GFR 119.8; POTASSIUM 4.6 mmol/L (3.5-5.1); TOTAL BILIRUBIN 0.4 mg/dL (0.2-1.0); TOTAL PROTEIN 8.3 g/dL (6.4-8.2)
== END ==
LOC: LAB 15:03
PROVIDERS: ATTEND Family Medicine
DX: F33.41 Major depressive disorder, recurrent, in partial remission (principal); R74.8 Abnormal levels of other serum enzymes; Z79.899 Other long term (current) drug therapy
CPT/HCPCS: 36415; 80053; 85025

== ENCOUNTER → 2020-12-04 | Outpatient (CLI) | payer OTHER ==
--- NOTE | 2020-12-04 16:28 | RAD ---
EXAM: Abdomen sonogram. HISTORY: Elevated liver enzyme laboratory values. TECHNIQUE: Sonographic imaging of the abdomen was performed. COMPARISON: None. FINDINGS: The liver is normal in size. No focal hepatic lesion is seen. There is hepatic steatosis. T he common bile duct is normal in caliber. The gallbladder is unremarkable. The right kidney is unrema rkable. The pancreas, aorta and inferior vena cava are predominantly obscured due to bowel gas. IMPRESSION: 1. Hepatic steatosis. 2. Limited evaluation of the midline structures due to bowel gas. 3. No acute sonographic finding. Electronically signed by: Ronda Gagnon MD (12/04/2020 4:25 PM) [id number]
== END ==
LOC: US 14:53
PROVIDERS: ATTEND Family Medicine
DX: K76.0 Fatty (change of) liver, not elsewhere classified (principal); R74.8 Abnormal levels of other serum enzymes
CPT/HCPCS: 76705

== ENCOUNTER → 2020-12-19 | Outpatient (CLI) | payer OTHER | LOC: LAB 14:05 | PROVIDERS: ATTEND Family Medicine | DX: R74.8 Abnormal levels of other serum enzymes (principal) | CPT/HCPCS: 36415; 86704; 86706; 86708; 86803; 87340 ==

== ENCOUNTER → 2021-02-02 | Outpatient (CLI) | payer OTHER ==
[2021-02-02 13:47] LABS: BASO # 0.1 x10^3/uL (0.0-0.2); BASO % 1 % (0-3); EOS # 0.2 x10^3/uL (0.0-0.7); EOS % 3 % (0-3); HEMOGLOBIN 16.9 g/dL (13.0-17.5); LYMPH # 2.1 x10^3/uL (1.0-4.8); LYMPH % 26 % (24-48); MEAN CORPUSCULAR HEMOGLOBIN 31 pg (25-35); MEAN CORPUSCULAR HGB CONC 34 g/dL (31-37); MEAN CORPUSCULAR VOLUME 91 fL (79-100); MONO # 0.6 x10^3/uL (0.0-1.1); MONO % 8 % (0-9); NEUT # 5.1 x10^3/uL (1.8-7.7); NEUT % 62 % (31-73); PLATELET COUNT 399 x10^3/uL (140-400); RED BLOOD COUNT 5.49 x10^6/uL (4.30-5.70); RED CELL DISTRIBUTION WIDTH 13.7 % (11.5-14.5); WHITE BLOOD COUNT 8.2 x10^3/uL (4.0-11.0)
[2021-02-02 14:14] LABS: ALBUMIN 4.6 g/dL (3.4-5.0); ALBUMIN/GLOBULIN RATIO 1.1 (1.0-1.7); CALCIUM 9.8 mg/dL (8.5-10.1); CREATININE 0.9 mg/dL (0.7-1.3); GFR 103.7; POTASSIUM 4.2 mmol/L (3.5-5.1); TOTAL BILIRUBIN 0.7 mg/dL (0.2-1.0); TOTAL PROTEIN 8.8 g/dL (6.4-8.2)
== END ==
LOC: LAB 13:32
PROVIDERS: ATTEND Family Medicine
DX: R74.8 Abnormal levels of other serum enzymes (principal); F33.41 Major depressive disorder, recurrent, in partial remission; Z79.899 Other long term (current) drug therapy
CPT/HCPCS: 36415; 80053; 83605; 85025